=== PATIENT | female | born 1985 | race Caucasian/White ===

== ENCOUNTER 2025-03-22 19:01 | Emergency (ER) | payer OTHER, MEDICAID ==
[~2025-03-22] VITALS: Ht 162.6 cm; Wt 73.0 kg
[2025-03-22 19:11] VITALS: BP 113/71; TEMP 36.8; O2SAT 96
[2025-03-22 19:12] VITALS: PULSE 110; RESP 16; O2SAT 98
[2025-03-22] MEDS ORDERED: ACET-2708 MT (22:04)
[2025-03-22] MEDS ORDERED: CAPS42.514 TP (22:04)
== END 2025-03-22 23:34 | disposition home or self-care (01) ==
LOC: ER 19:01
DX: M25.571 Pain in right ankle and joints of right foot (principal); J45.909 Unspecified asthma, uncomplicated; M79.7 Fibromyalgia; Z88.1 Allergy status to other antibiotic agents; Z98.890 Other specified postprocedural states; Z79.899 Other long term (current) drug therapy
CPT/HCPCS: 99283; 73620; A6449